=== PATIENT | male | born 1975 | race Asian ===

== ENCOUNTER 2016-05-29 05:17 | Day surgery (SDC) | payer OTHER ==
[2016-05-27 16:09] VITALS: BMI 21.4
[2016-05-29] MEDS ORDERED: ONDANSETRON 4 MG/2 ML VIAL IVPUSH PRN (10:33)
[2016-05-29] MEDS ORDERED: oxyCODONE HCL 5 MG TABLET PO PRN (10:33)
[2016-05-29] MEDS ORDERED: LACTATED RINGERS SOLUTION 1,000 ML IV SCH (10:45)
[2016-05-29] MEDS ORDERED: ROPIVACAINE HCL 0.5% 30ML VIAL ONE (11:00)
[2016-05-29] MEDS ORDERED: MIDAZOLAM HCL 2 MG/2 ML SINGLE DOSE VIAL ONE ×3 (11:01→11:38)
--- NOTE | 2016-05-29 11:24 | HP ---
Satellite [facility] - Chief Complaint Chief Complaint: left shoulder pain - Past Medical History Allergies/Adverse Reactions: Allergies Allergy/AdvReac Type Severity Reaction Status Date / Time No Known Drug Allergies Allergy Verified 05/29/16 10:00 - Current Medications Current Medications: Home Medications Medication Instructions Recorded Multivitamins [Multivit ([facility] 1 tab PO DAILY 05/27/16 Formulary)] Oxycodone HCl/Acetaminophen 1 - 2 tab PO Q6H #50 tab MDD 8 05/29/16 [Percocet 5-325 mg Tablet -] Satellite Physical Exam - Physical Examination Vital Signs: Vital Signs Period Temp Pulse Resp BP Sys/Robert Pulse Ox Last 24 Hr 97.4 F 64 18 101/58 100 General Appearance: Well Nourished, Well Developed, Alert & Oriented x3 ENT: Clear Lung: Normal air movement Heart: Regular rate & rhythm Extremities: Other (left shoulder-+ttp AC jt, decr rom, + cross arm add, + neer , + beatty, nvi MRI- AC jt OA, impingement) Neurological: Intact, Alert, Oriented Satellite Impression/Plan - Impression/Plan Impression: left shoulder impingement, AC jt OA Operative Procedure: left shoulder arthroscopy with TIMMY, SAD Date to be Performed: 05/29/16
[2016-05-29] MEDS ORDERED: ceFAZolin SODIUM 1 GM VIAL ONE (11:38)
[2016-05-29] MEDS ORDERED: SODIUM CHLORIDE 0.9% P/F 10 ML VIAL IJ ONE (11:38)
[2016-05-29] MEDS ORDERED: KETOROLAC TROMETHAMINE 30 MG/1 ML VIAL ONE (11:38)
[2016-05-29] MEDS ORDERED: PROPOFOL 20 ML ONE (11:38)
[2016-05-29] MEDS ORDERED: DEXAMETHASONE SOD PHOSPHATE 4 MG/1 ML VIAL ONE (11:38)
[2016-05-29] MEDS ORDERED: ceFAZolin SODIUM 1 GM VIAL IVPB ONE (11:51)
--- NOTE | 2016-05-29 13:06 | OP ---
Operative Note - Note: Operative Date: 05/29/16 ([facility]) Pre-Operative Diagnosis: left shoulder AC jt OA, impingement Operation: left shoulder arthroscopy with SAD, DCE, extensive debridement of bone and soft tissue Post-Operative Diagnosis: Same as Pre-op Surgeon: Ian Bajwa Reserve Operator: Geoff Conteh Anesthesiologist/SOLAR INSTALLATION HELPER: Robert Baez Jr. Anesthesia: General, Local Specimens Removed: shavings Estimated Blood Loss (mls): 5 Operative Report Dictated: Yes
[2016-05-29 14:51] VITALS: TEMP 97.8
[2016-05-29 16:32] VITALS: BP 103/58; PULSE 72
--- NOTE | 2016-05-30 12:57 | OP ---
DATE OF OPERATION: 05/29/2016 PREOPERATIVE DIAGNOSIS: Degenerative joint disease, left acromioclavicular joint. POSTOPERATIVE DIAGNOSIS: Degenerative joint disease, left acromioclavicular joint. PROCEDURE: Arthroscopy, left shoulder, with subacromial debridement of bone and soft tissue on distal clavicle excision. SURGICAL ATTENDING: Ian Bajwa M.D. METEOROLOGY FACULTY MEMBER: CAMILLE Jackson ANESTHESIA: Regional and general. CLOSURE: 3-0 nylon. COMPLICATIONS: None. CONDITION: Recovery room in stable condition. DESCRIPTION OF PROCEDURE: The patient was taken to the operating room on May 29, 2016. Regional anesthesia, followed by general anesthesia was administered by the anesthesiologist. IV Kefzol was administered prophylactically prior to the case. The patient was placed in the beach chair position with all prominences well padded. The left shoulder area was prepped and draped in the usual sterile fashion. First, a diagnostic arthroscopy of the glenohumeral joint was performed. A posterior portal was made 2 fingerbreadths below the acromion, first with a 15 blade, followed by a blunt trocar. Circumferential exam of the glenohumeral joint revealed the following: Intact glenoid, humeral head, articular cartilage, intact labrum circumferentially, intact biceps and biceps anchor, intact subscapularis to its insertion, intact superior and inferior teres minor to its insertion. No loose bodies in the axillary pouch. Fluid was drained from the glenohumeral joint and the trocar was removed. Next, the posterior trocar was redirected in the subacromial space. An accessory lateral portal was made using a 15 blade, followed by a blunt trocar. Bursal tissue encasing the humeral head was debrided using the ArthroCare device, exposing healthy rotator cuff tissue beneath. Range of motion revealed intact rotator cuff throughout. An acromioplasty was then performed, debriding the bone anteriorly, exposing the anterior edge of the acromion all the way to the AC joint. The distal clavicle was localized by spinal needles and the AC joint as an anterior and posterior . The ArthroCare wand was used to take the soft tissue from the inside of the AC joint. A emir was then used to debride the distal aspect of the acromion from the lateral portal. An accessory anterior portal was made at the AC joint. The emir and the ArthroCare device were used again there to ensure that the entire distal clavicle was taken with no residual bone, even superiorly. I was able to look from inferior superiorly into the AC joint to see that the entire distal clavicle was taken. The superior ligament was left intact between the acromion and the AC joint. The bone was beveled both on the acromion side and the distal clavicle side as well. Probing also revealed that the entire distal clavicle was taken from anterior to posterior with no residual bone superiorly. There was a sufficient gap between the acromion and the distal clavicle. The shoulder was irrigated with copious amounts of irrigation. The portals were closed with 3-0 nylon. Sterile pressure dressing, followed by a sling was applied on the left upper extremity. The patient awakened from anesthesia and was transferred to the recovery room in stable condition. No complications. ESTIMATED BLOOD LOSS: Negligible. Perri REVELES/[id number]
--- NOTE | 2016-06-01 15:45 | PATH ---
Surgical Pathology Report Patient Name: SULEMA AC [facility]. Rec. #: [id number] /Age/Gender: 1975 (Age: 40) / M Account: [id number] Location: [facility] SURGICAL Taken: 05/29/2016 Received: 05/29/2016 Reported: 06/01/2016 Physicians: Ian Bajwa M.D. Specimen(s) Received LEFT SHOULDER SHAVINGS Clinical History Tear left distal clavicle Final Diagnosis SOFT TISSUE, LEFT SHOULDER, ARTHROSCOPIC SHAVINGS: SYNOVIUM AND FIBROCARTILAGE WITH MYXOHYALINE DEGENERATION. FRAGMENTS OF UNREMARKABLE BONE AND SKELETAL MUSCLE. Electronically Signed Harshal Rowell M.D. Gross Description Received in formalin, labeled "left shoulder shavings" is a 5.0 x 4.0 x 0.6 cm aggregate of sharpe-yellow soft tissue fragments. A public health representative portion is submitted in one cassette. 05/29/201605/29/2016
== END 2016-05-29 16:39 | disposition home or self-care (01) ==
LOC: JASU-SURG 05:17
PROVIDERS: ATTEND Orthopaedic Surgery
PROC: 0RNK4ZZ Release Left Shoulder Joint, Percutaneous Endoscopic Approach (ICD-10-PCS; 2016-05-29)
PROC: 0PBB4ZZ Excision of Left Clavicle, Percutaneous Endoscopic Approach (ICD-10-PCS; principal; 2016-05-29 11:15)
DX: M19.012 Primary osteoarthritis, left shoulder (principal)
CPT/HCPCS: 88304-TC; 94760

== ENCOUNTER 2020-10-05 05:02 | Emergency (ER) | payer BC, OTHER ==
[2020-10-05 05:25] VITALS: BMI 21.1
[2020-10-05] MEDS ORDERED: SODIUM CHLORIDE 1,000 ML IV STA (05:52)
[2020-10-05] MEDS ORDERED: MAG HYDROX/AL HYDROX/SIMETH 30 ML UNIT-DOSE CUP PO ONE (05:55)
[2020-10-05] MEDS ORDERED: FAMOTIDINE 20 MG/50 ML IVPB 20 MG/50 ML MG IVPB ONE ×2 (05:58→06:13)
[2020-10-05] MEDS ORDERED: MAG HYDROX/AL HYDROX/SIMETH 30 ML UNIT-DOSE CUP ONE (06:11)
[2020-10-05 06:21] LABS: BASO % 0.4 % (0-2.0); EOS % 6.1 % (0-4.5); HEMATOCRIT 38.2 % (35.4-49); HEMOGLOBIN 12.6 GM/dL (11.7-16.9); LYMPH % 22.7 % (8-40); MCH 31.1 pg (25.7-33.7); MEAN CELL VOLUME 94.3 fl (80-96); MEAN PLT VOLUME 9.8 fl (7.5-11.1); MONO % 8.7 % (3.8-10.2); NEUT % 62.1 % (42.8-82.8); PLATELET COUNT 134 10^3/uL (134-434); RBC 4.05 M/mm3 (4.00-5.60); RDW 14.1 % (11.9-15.9); WHITE BLOOD COUNT 7.3 K/mm3 (4.0-10.0)
[2020-10-05 06:43] LABS: ALBUMIN 3.7 g/dl (3.4-5.0); BLOOD UREA NITROGEN 16.6 mg/dL (7-18); CALCIUM 8.3 mg/dL (8.5-10.1)
[2020-10-05 06:44] LABS: MAGNESIUM 2.1 mg/dL (1.8-2.4)
[2020-10-05 06:46] LABS: CREATININE 0.8 mg/dL (0.55-1.3)
[2020-10-05 06:48] LABS: BILIRUBIN,TOTAL 0.3 mg/dL (0.2-1); TOT PROT 7.2 g/dl (6.4-8.2)
[2020-10-05] MEDS ORDERED: DICYCLOMINE HCL 20 MG TABLET PO ONE (06:56)
[2020-10-05] MEDS ORDERED: DICYCLOMINE HCL 10 MG CAPSULE ONE (07:01)
[2020-10-05] MEDS ORDERED: PANTOPRAZOLE SODIUM 40 MG VIAL IVPUSH ONE (07:03)
[2020-10-05] MEDS ORDERED: SUCRALFATE 1 GM/10 ML UNIT DOSE CUPS PO ONE (07:03)
[2020-10-05] MEDS ORDERED: SUCRALFATE 1 GM TABLET (FP) ONE (07:22)
[2020-10-05] MEDS ORDERED: PANTOPRAZOLE SODIUM 40 MG VIAL ONE (07:23)
[2020-10-05] MEDS ORDERED: PANTOPRAZOLE SODIUM 40 MG/100 ML BAG IVPB ONE (07:23)
[2020-10-05 13:25] VITALS: BP 128/66; PULSE 60; TEMP 98
[2020-10-05 21:43] LABS: LIPASE 126 U/L (73-393)
== END 2020-10-05 13:26 | disposition home or self-care (01) ==
LOC: JER 05:02
PROC: 3E033GC Introduction of Other Therapeutic Substance into Peripheral Vein, Percutaneous Approach (ICD-10-PCS; principal; 2020-10-05)
PROC: 3E033GC Introduction of Other Therapeutic Substance into Peripheral Vein, Percutaneous Approach (ICD-10-PCS; 2020-10-05)
PROC: 3E0337Z Introduction of Electrolytic and Water Balance Substance into Peripheral Vein, Percutaneous Approach (ICD-10-PCS; 2020-10-05)
PROC: 3E0337Z Introduction of Electrolytic and Water Balance Substance into Peripheral Vein, Percutaneous Approach (ICD-10-PCS; 2020-10-05)
DX: R07.9 Chest pain, unspecified (principal); R10.13 Epigastric pain
CPT/HCPCS: 36415; 71046-TC-FY; 74177-TC; 76705-TC; 80053; 82550; 82553; 83690; 83735; 84484; 85025; 93005; 93010; 93308; 99285-25; Q9967